=== PATIENT | female | born 1965 | race Caucasian/White ===

== ENCOUNTER 2020-09-14 08:06 | Emergency (ER) | payer MEDICAID ==
[2020-09-14] MEDS ORDERED: Acetaminophen 325 MG Tab PO ONE (08:40)
[2020-09-14] MEDS ORDERED: HYDROmorphone 0.5 MG/0.5 ML Syringe IM ONE (08:40)
--- NOTE | 2020-09-14 08:48 | EDM.PDOC ---
ED HPI GENERAL MEDICAL PROBLEM - General Chief Complaint: Lower Extremity Injury/Pain Stated Complaint: HEMOTOMA ON THIGH GETTING WORSE Time Seen by Provider: 09/14/20 08:18 Source of Information: Reports: Patient, RN Notes Reviewed - History of Present Illness INITIAL COMMENTS - FREE TEXT/NARRATIVE: 54 yr old female comes in with L thigh pain status post injury about 3 wks ago. She states her foot and leg slipped in between the pipes [place] with bruise injury to her L thigh. The bruising has gone away but there remains an area of swelling and worsening discomfort L lateral mid thigh. She did have an US of her leg last Sunday, she has an appt. to see Dr Syed, General Surgeon, [facility] 4PM this afternoon, about 7 hrs from now. No fever, chills, chest pain or difficulty breathing. Has been taking ibuprofen but has not taken anything for pain this morning. Left Upper Leg Pain Score (Numeric/FACES): 7 - Related Data Allergies Allergy/AdvReac Type Severity Reaction Status Date / Time cats Allergy Difficulty Uncoded 09/14/20 08:17 Breathing dogs Allergy Difficulty Uncoded 09/14/20 08:17 Breathing mold Allergy Difficulty Uncoded 09/14/20 08:17 Breathing perfumes Allergy Difficulty Uncoded 09/14/20 08:17 Breathing pet dander Allergy Difficulty Uncoded 09/14/20 08:17 Breathing Home Meds: Home Meds Albuterol Sulfate [Proair Hfa] 2 puff INH Q4H PRN 09/14/20 [History] Budesonide/Formoterol [Symbicort 160-4.5 MCG] 2 puff INH BID 09/14/20 [History] Past Medical History Cardiovascular History: Reports: None Respiratory History: Reports: Asthma Gastrointestinal History: Reports: Other (See Below) Other Gastrointestinal History: food stuck in esophagus CURB ATTENDANT History: Reports: Polycystic Ovaries, Musculoskeletal History: Reports: None, Fracture - Past Surgical History GI Surgical History: Reports: EGD Female Surgical History: Reports: Other (See Below) Other Female Surgeries/Procedures: uterine ablation Musculoskeletal Surgical History: Reports: ORIF Social & Family History - Tobacco Use Tobacco Use Status *Q: Unknown Ever Used Tobacco Review of Systems - Review of Systems Review Of Systems: See Below Constitutional: Denies: Chills, Fever Respiratory: Denies: Shortness of Breath, Pleuritic Chest Pain Cardiovascular: Denies: Chest Pain GI/Abdominal: Reports: No Symptoms Musculoskeletal: Reports: Leg Pain (and swelling L lateral thigh) Skin: Denies: Rash Neurological: Reports: No Symptoms ED EXAM, GENERAL - Physical Exam Exam: See Below General Appearance: Alert, Mild Distress Head: Atraumatic Neck: Supple Respiratory/Chest: No Respiratory Distress Extremities: Other (There is a moderately large area of swelling, about 6 by 10 cm mid lateral L thigh, moderately tender. Leg is not otherwise erythematous or tender., distal calf not bruised, swollen, tender, or erythematous) Neurological: Alert, Oriented, No Motor/Sensory Deficits Skin Exam: Warm, Dry Course - Vital Signs Last Recorded V/S: Last Vital Signs Temp 96.8 F L 09/14/20 08:19 Pulse 79 09/14/20 08:19 Resp 15 09/14/20 08:19 BP 158/92 H 09/14/20 08:19 Pulse Ox 100 09/14/20 08:19 - Orders/Labs/Meds Meds: Medications Discontinued Medications Generic Name Dose Route Start Last Admin Trade Name Marilyn PRN Reason Stop Dose Admin Acetaminophen 975 mg 09/14/20 08:40 09/14/20 08:45 Acetaminophen 325 Mg Tab PO 09/14/20 08:41 975 mg NOW ONE Administration Hydromorphone HCl 0.5 mg 09/14/20 08:40 09/14/20 08:47 Hydromorphone 0.5 Mg/0.5 Ml Syringe IM 09/14/20 08:41 0.5 mg ONETIME ONE Administration - Re-Assessments/Exams Free Text/Narrative Re-Assessment/Exam: 09/14/20 09:[address] Syed to have her be aware pt is here, was hoping something could be done sooner. She does have the 4 PM afternoon appointment. Have given her tylenol and 0.5 mg dilaudid IM. That has helped her, she is now more relaxed, more willing to wait for the afternoon appointment. Departure - Departure Time of Disposition: 09:41 Disposition: Home, Self-Care 01 Condition: Fair Clinical Impression: Hematoma - Discharge Information Referrals: [place], [facility] [Primary Care Provider] - Forms: ED Department Discharge Additional Instructions: Triston wrap L thigh. Elevate leg as much as possible. See Dr Syed 4:00 this afternoon as planned. If we hear anything different from her office we will call you and let you know. Sepsis Event Note (ED) - Evaluation Sepsis Screening Result: No Definite Risk - Focused Exam Vital Signs: Vital Signs Temp Pulse Resp BP Pulse Ox 09/14/20 08:19 96.8 F L 79 15 158/92 H 100
== END 2020-09-14 09:54 | disposition home or self-care (01) ==
LOC: JD.ED 08:06
DX: S70.12XA Contusion of left thigh, initial encounter (principal); Z91.048 Other nonmedicinal substance allergy status; J45.909 Unspecified asthma, uncomplicated; Z79.899 Other long term (current) drug therapy; W23.0XXA Caught, crushed, jammed, or pinched between moving objects, initial encounter
CPT/HCPCS: 96372; 99283; A9270; J1170